=== PATIENT | male | born 1960 | race Caucasian/White ===

== ENCOUNTER 2017-10-21 13:36 | Emergency (ER) | payer MEDICARE, MEDICAID, SELFPAY ==
[2017-10-21 13:38] VITALS: BP 115/73; PULSE 97; RESP 16; TEMP 36.6; O2SAT 94; BMI 32.5
--- NOTE | 2017-10-21 14:44 | ED.VISSUMM ---
- ER Visit Summary Date of Service: 10/21/17 Chief Complaint: Fall History of Present Illness: The patient is a 56 M who is a history of Down syndrome and mental retardation. He does not verbally communicate. 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 They believe he may slipped on urine. Patient unable to communicate to say if he has any injuries. He was sent in for evaluation. There was no reported bleeding and no known history of any loss of consciousness. Physical Examination: Middle-aged male no acute distress. Vital signs are stable afebrile. He does not look septic toxic or in any distress. HEENT exam atraumatic. There is no signs of trauma to his face or scalp. He has no hair. No dental injury. I do not see any dentition. Neck nontender. Trachea midline. Lungs clear to auscultation bilaterally. Chest wall nontender. Heart regular rhythm. Abdomen soft nontender. Pelvic girdle intact. He is moving all 4 extremities. Normal range of motion. Normal rn physician office strength. Dorsi and plantar flexion is intact. There are no gross bony deformities. He has no tenderness of his extremities. Back is nontender without signs of trauma. Neurologically is awake and he does follow commands. Test Results: None Emergency Department Course and Treatment: I spoke to his guardian at bedside. She is comfortable with him being discharged home. We do not find any acute injuries on exam. Treatment Plan: Tylenol for any pain. Return if any problems. Disposition: Discharge Impression: Acute fall History of mental retardation and Down syndrome. This note was generated with [employer] dictation software. It may contain incorrect words, spelling, and punctuation that were not noted in review of the chart prior to signing ED Disposition - Plan for ED Patient: Chief Complaint: Fall
--- NOTE | 2017-10-21 14:47 | ED.DEP ---
ED Disposition - Plan for ED Patient: Disposition: Home or Assisted Living Chief Complaint: Fall Instructions: ED Mechanical Fall Additional Instructions: Ice to any sore areas. Tylenol or Motrin for any pain. Follow-up with his doctor as needed.
[2017-10-21 15:07] VITALS: PULSE 95; RESP 16; O2SAT 94
== END 2017-10-21 15:19 | disposition home or self-care (01) ==
PROVIDERS: Emergency Provider Emergency Medicine; Family Provider Family Medicine; PCP Family Medicine
DX: F79 Unspecified intellectual disabilities (principal); Q90.9 Down syndrome, unspecified; Z91.81 History of falling
CPT/HCPCS: 99283

== ENCOUNTER → 2018-01-11 11:17 | Outpatient (CLI) | payer MEDICARE, MEDICAID, SELFPAY ==
[2018-01-11 12:10] LABS: Mucous, Urine 0 SEEN /hpf (<or=2+)
[2018-01-11 12:19] LABS: Color, Urine Yellow (Yellow); Glucose, Dipstick Normal (Normal); Ketone-Dipstick Negative (Negative); Leukocyte Esterase-Dipstick 500 /ul (Negative); Nitrite-Dipstick Negative (Negative); Occult Blood-Urine 25 /ul (Negative); Protein-Dipstick 15 mg/dl (Negative); Specific Gravity, Urine 1.005 (1.002-1.030); Urine Bilirubin Dipstick Negative (Negative); Urine Clarity Cloudy (Clear); Urine Urobilinogen Normal (Normal)
[2018-01-11 12:29] LABS: Bacteria 3+ /hpf (None Seen); Red Blood Cells-Urine 0-5 SEEN /hpf (0-5); Squamous Epithelial Cells - UA 0-5 SEEN /hpf (0-5); White Blood Cells >100 SEEN /hpf (0-5)
== END ==
PROVIDERS: Family Provider Family Medicine; PCP Family Medicine; Referring Provider Family Medicine; Visit Provider Family Medicine
DX: R07.9 Chest pain, unspecified (principal); R39.11 Hesitancy of micturition; Z87.440 Personal history of urinary (tract) infections
CPT/HCPCS: 81001; 87077; 87086; 87088; 87186

== ENCOUNTER → 2021-05-28 | Outpatient (REF) | payer SELFPAY ==
[2021-05-28 09:15] LABS: Absolute Neutrophil Count 3.6 X10^3/uL (2.0-7.7); Basophil# 0.04 X10^3/uL; Basophil% 0.7 % (0-1); Eosinophil# 0.04 X10^3/uL; Eosinophils% 0.7 % (0-5); Hematocrit 38.9 % (40-54); Hemoglobin 13.3 g/dL (13.0-16.5); Lymphocyte % 26.8 % (19-41); Mean Corp Hgb Conc 34.2 g/dL (32-36); Mean Corpuscular Hgb 34.1 pg (27.0-32.0); Mean Corpuscular Volume 99.7 fL (80-94); Mean Platelet Vol. 11.2 fl (6.2-12.0); Monocyte% 11.7 % (0-10); NRBC Flagged by Analyzer 0 % (0-5); Neutrophil # 3.57 X10^3/uL (2.7-7.7); Neutrophil % 59.6 % (47-70); Platelet Count 208 K/mm3 (150-450); RBC Distribution Width CV 15.3 % (11.6-14.6); RBC Distribution Width SD 55.8 fl (35.1-43.9)
[2021-05-28 09:31] LABS: Anion Gap 5 (5-15); BUN 25 mg/dL (7-18); BUN/Creat Ratio 24.8 RATIO (10-20); Calcium,Total 8.8 mg/dL (8.5-10.1); Chloride 104 mmol/L (98-107); Creatinine, Serum 1.01 mg/dL (0.70-1.30); EST Glomerular Filtration Rate 81 mL/min (>60); Est Glom Filt Rate - Afr Amer 97 mL/min (>60); Glucose 112 mg/dL (74-106); Potassium 4.3 mmol/L (3.5-5.1); Sodium Level 137 mmol/L (136-145)
== END | disposition home or self-care (01) ==
LOC: OLS.SW1020 04:00
PROVIDERS: PCP Family Medicine; Referring Provider Internal Medicine; Visit Provider Internal Medicine
DX: E03.9 Hypothyroidism, unspecified (principal); R68.89 Other general symptoms and signs; Z13.228 Encounter for screening for other metabolic disorders
CPT/HCPCS: 36415; 80048; 85025

== ENCOUNTER → 2021-06-01 | Outpatient (REF) | payer SELFPAY ==
[2021-06-01 09:55] LABS: Thyroid Stim Hormone (TSH) 1.14 uIU/mL (0.358-3.74)
[2021-06-01 09:56] LABS: Vitamin B12 684 pg/mL (211-911)
== END | disposition home or self-care (01) ==
LOC: OLS.SW1020 04:00
PROVIDERS: PCP Family Medicine; Referring Provider Internal Medicine; Visit Provider Internal Medicine
DX: G93.41 Metabolic encephalopathy (principal); G40.909 Epilepsy, unspecified, not intractable, without status epilepticus; E03.9 Hypothyroidism, unspecified
CPT/HCPCS: 36415; 80156; 82607; 84443

== ENCOUNTER 2021-06-06 03:49 | Emergency (ER) | payer MEDICARE, MEDICAID, SELFPAY ==
[2021-06-06 03:50] VITALS: BP 123/88; PULSE 164; RESP 17; TEMP 36.5; O2SAT 94; BMI 31.2
--- NOTE | 2021-06-06 03:58 | EX.ED.DYSGE1 ---
HPI History of Present Illness Chief Complaint: Other, Pain/Inj Informant: EMS Narrative Narrative: Patient sent from [facility] due to pulling out his G-tube. It has been out for an unknown period of time, the tube has been in for at least 1 year. Patient DNR CCA. Limited history and exam due to mental retardation and unable to follow commands, nonverbal. He is agitated. retirement staff states this is his baseline and the only reason he was sent it was to get his G-tube replaced which was a 20 [place]an. They did not send the old tube. PFSH PFSH Home Medications carbamazepine 100 mg G-TUBE DAILY 10/21/17 [History Last Taken Unknown] ferrous sulfate [Ferosul] 220 mg G-TUBE DAILY 10/21/17 [History Last Taken Unknown] levothyroxine 88 mcg G-TUBE DAILY 10/21/17 [History Last Taken Unknown] loratadine 10 mg G-TUBE DAILY 10/21/17 [History Last Taken Unknown] midodrine 10 mg G-TUBE TID 10/21/17 [History Last Taken Unknown] omeprazole-sodium bicarbonate [Zegerid 40 mg Packet] 40 ea G-TUBE DAILY 10/21/17 [History Last Taken Unknown] Allergy/AdvReac Type Severity Reaction Status Date / Time No Known Allergies Allergy Verified 10/21/17 13:50 Social History Smoking Status: Never smoker ROS ROS ED Review of Systems ROS Unobtainable: due to mental condition EXAM Physical Exam Const Vital Signs: 06/06/21 03:50 Temperature 97.7 F L Temperature Source Temporal Pulse Rate 164 H Respiratory Rate 17 Blood Pressure 123/88 H Blood Pressure Mean 99 Pulse Ox 94 Oxygen Delivery Method Nasal Cannula Oxygen Flow Rate (L/min) 2 Positive well nourished and well developed General Appearance ED: well developed Eyes PERRL Neck supple and no meningeal signs Resp normal respiratory effort and clear to auscultation bilaterally Cardio regular rate and regular rhythm Rate: tachycardic GI normal to inspection, nondistended, normoactive bowel sounds, non-tender and non-distended Palpation: soft Rectal Exam: other Other Details: Left upper quadrant G-tube site benign without discharge or signs of infection or tenderness/erythema Neuro Neuro Narrative: Moving all 4 extremities, purposeful movements with arms, reaching at examiner, staff, new gastrostomy tube Sensorium / Orientation: alert Psych Attitude: agitated Skin no rashes or lesions noted and no wounds MDM MDM MDM Narrative Medical decision making narrative: Since we used a Yanes to give him a new tube, I was not able to aspirate stomach contents due to the tube collapsing so I confirm placement with a Gastrografin KUB. On my interpretation 1 view KUB shows good placement within the stomach. Discharged back to [facility]. Procedures Other Procedures Procedure(s): G-tube replacement: Immediately available was only a 20 [place]an silicone Yanes catheter, after confirming balloon patency, I applied a small amount of sterile lubricant and inserted it into the gastrostomy site without any difficulty or apparent pain or bleeding. Due to the Yanes collapsing with aspiration of was not able to aspirate stomach contents but it flushed easily with 20 cc of water, and the balloon was instilled with 10 cc of water without any apparent pain or discomfort. Gastrografin KUB was performed and confirmed placement which was without complication and was tolerated well. Abdominal binder placed since the patient is pulling at the tube already. Discharge Plan Triage Chief Complaint: Other, Pain/Inj Other Complaint: General Illness ED Provider: Navin Toscano Dx/Rx/DC Orders Clinical Impression: Dislodged gastrostomy tube Instructions: ED Feeding Tube Replacement Prescriptions: No Action levothyroxine 88 MCG tablet 88 mcg G-tube DAILY RF: 0 loratadine 10 MG tablet 10 mg G-tube DAILY RF: 0 midodrine 10 MG tablet 10 mg G-tube TID RF: 0 omeprazole-sodium bicarbonate [Zegerid] 1 EACH Packet 40 ea G-tube DAILY RF: 0 ferrous sulfate [FeroSul] 220 MG/5 ML Elixir 220 mg G-tube DAILY RF: 0 carbamazepine 100 MG Tab.Chew 100 mg G-tube DAILY RF: 0 Primary Care Provider: Cate Ryan Referrals: Cate Ryan DO [Primary Care Provider] - 5-7 Days Disposition Disposition: Home, Self Care
--- NOTE | 2021-06-06 03:58 | ED.RN ---
called and talked to tarsha at [facility] who states the behavior and agitation is baseline for this patient
--- NOTE | 2021-06-06 04:10 | RAD_ITS ---
STUDY: X-RAY - ABDOMEN/PELVIS REASON FOR EXAM: Male, 60 years old. G-tube placement -- w/ gastrograffin TECHNIQUE: Single AP view of the abdomen / pelvis. COMPARISON: None. FINDINGS: Gastric tube is in good position. Contrast is seen within the stomach. There is no evidence of contrast leak. There is no evidence of free air in the abdomen. There is an unremarkable bowel gas pattern. There is no demonstrated free abdominal air. The visualized liver, spleen and kidneys are grossly normal in size and morphology. Normal soft tissue structures. Normal visualized osseous structures. RAD/Abdomen Single View (Portable) IMPRESSION: Gastric tube is in good position. Electronically Signed: Brea Toledo MD at 5:17 EDT ,
[2021-06-06 04:35] VITALS: BP 127/88; PULSE 112; RESP 20; O2SAT 95
== END 2021-06-06 04:37 | disposition home or self-care (01) ==
LOC: ED 04:13
PROVIDERS: Emergency Provider Emergency Medicine; PCP Family Medicine; Visit Provider Emergency Medicine
DX: K94.29 Other complications of gastrostomy (principal); F79 Unspecified intellectual disabilities
CPT/HCPCS: 43762; 74018; 99283

== ENCOUNTER → 2021-06-11 | Outpatient (REF) | payer SELFPAY ==
[2021-06-11 07:19] LABS: Absolute Lymphocyte Count 2.26 X10^3/uL (0.83-4.51); Absolute Neutrophil Count 4.5 X10^3/uL (2.0-7.7); Basophil# 0.06 X10^3/uL; Basophil% 0.8 % (0-1); Eosinophil# 0.11 X10^3/uL; Eosinophils% 1.4 % (0-5); Hematocrit 40.7 % (40-54); Hemoglobin 13.8 g/dL (13.0-16.5); Lymphocyte # 2.26 X10^3/ul (0.83-4.51); Lymphocyte % 29.4 % (19-41); Mean Corp Hgb Conc 33.9 g/dL (32-36); Mean Corpuscular Hgb 34.1 pg (27.0-32.0); Mean Corpuscular Volume 100.5 fL (80-94); Mean Platelet Vol. 11.6 fl (6.2-12.0); Monocyte# 0.72 X10^3/uL; Monocyte% 9.4 % (0-10); NRBC Flagged by Analyzer 0 % (0-5); Neutrophil % 58.6 % (47-70); Platelet Count 219 K/mm3 (150-450); RBC Distribution Width CV 14.7 % (11.6-14.6); RBC Distribution Width SD 54.7 fl (35.1-43.9); Red Blood Count 4.05 M/mm3 (4.6-6.2); White Blood Count 7.7 K/mm3 (4.4-11.0)
[2021-06-11 07:33] LABS: Anion Gap 7 (5-15); BUN 24 mg/dL (7-18); BUN/Creat Ratio 24.6 RATIO (10-20); Calcium,Total 8.1 mg/dL (8.5-10.1); Chloride 98 mmol/L (98-107); Creatinine, Serum 0.98 mg/dL (0.70-1.30); EST Glomerular Filtration Rate 84 mL/min (>60); Est Glom Filt Rate - Afr Amer 101 mL/min (>60); Glucose 104 mg/dL (74-106); Potassium 3.5 mmol/L (3.5-5.1); Sodium Level 137 mmol/L (136-145)
== END | disposition home or self-care (01) ==
LOC: OLS.SW300 05:00
PROVIDERS: PCP Family Medicine; Referring Provider Internal Medicine; Visit Provider Internal Medicine
DX: G93.41 Metabolic encephalopathy (principal); J90 Pleural effusion, not elsewhere classified
CPT/HCPCS: 36415; 80048; 85025

== ENCOUNTER → 2021-06-18 | Outpatient (REF) | payer SELFPAY ==
[2021-06-18 07:43] LABS: Absolute Lymphocyte Count 1.91 X10^3/uL (0.83-4.51); Absolute Neutrophil Count 4.5 X10^3/uL (2.0-7.7); Basophil# 0.07 X10^3/uL; Basophil% 0.9 % (0-1); Eosinophil# 0.09 X10^3/uL; Eosinophils% 1.2 % (0-5); Hematocrit 42.5 % (40-54); Hemoglobin 14.6 g/dL (13.0-16.5); Lymphocyte # 1.91 X10^3/ul (0.83-4.51); Lymphocyte % 25.5 % (19-41); Mean Corp Hgb Conc 34.4 g/dL (32-36); Mean Corpuscular Hgb 34.8 pg (27.0-32.0); Mean Corpuscular Volume 101.2 fL (80-94); Mean Platelet Vol. 11.2 fl (6.2-12.0); Monocyte# 0.81 X10^3/uL; Monocyte% 10.8 % (0-10); NRBC Flagged by Analyzer 0 % (0-5); Neutrophil # 4.54 X10^3/uL (2.7-7.7); Neutrophil % 60.7 % (47-70); Platelet Count 225 K/mm3 (150-450); RBC Distribution Width SD 55.7 fl (35.1-43.9); White Blood Count 7.5 K/mm3 (4.4-11.0)
[2021-06-18 08:04] LABS: Anion Gap 4 (5-15); BUN 24 mg/dL (7-18); BUN/Creat Ratio 27.9 RATIO (10-20); Chloride 102 mmol/L (98-107); Creatinine, Serum 0.86 mg/dL (0.70-1.30); EST Glomerular Filtration Rate 97 mL/min (>60); Est Glom Filt Rate - Afr Amer 117 mL/min (>60); Glucose 107 mg/dL (74-106); Potassium 3.9 mmol/L (3.5-5.1); Sodium Level 134 mmol/L (136-145)
== END | disposition home or self-care (01) ==
LOC: OLS.SW300 04:00
PROVIDERS: PCP Family Medicine; Referring Provider Internal Medicine; Visit Provider Internal Medicine
DX: E03.9 Hypothyroidism, unspecified (principal); G93.41 Metabolic encephalopathy
CPT/HCPCS: 36415; 80048; 85025